=== PATIENT | female | born 1950 | race Hispanic/Latino ===

== ENCOUNTER → 2018-12-31 | Outpatient (CLI) | payer OTHER | LOC: US 10:02 | PROVIDERS: ATTEND Surgery | DX: R92.8 Other abnormal and inconclusive findings on diagnostic imaging of breast (principal) ==

== ENCOUNTER → 2019-01-16 | Outpatient (CLI) | payer OTHER ==
--- NOTE | 2019-01-17 08:24 | Diagnostic Imaging Report ---
#[id number] - MGDXRT #UNILATERAL RIGHT DIGITAL DIAGNOSTIC MAMMOGRAM WITH SPOT COMPRESSION: 01/16/2019 Comparison is made to exams dated: 06/17/2018 mammogram, 06/17/2018 ultrasound and 06/04/2018 mammogram - [facility]. Current study contains 3 films. There are scattered fibroglandular elements in the right breast. Benign appearing calcifications are noted in the right breast. Medial skin lesion has been resected. No significant masses, calcifications, or other findings are seen in the breast. IMPRESSION: BENIGN See the report for ultrasound performed the same day for additional details. There is no mammographic evidence of malignancy. A 1 year screening mammogram is recommended. The patient will be notified by letter of the results. BRUNILDA HEREDIA M.D. ct/:01/16/2019 10:25:25 Medical Records Supervisor: Gretel RONDON)(Noel), [facility] letter sent: Normal Exam Mammogram BI-RADS: 2 Benign
--- NOTE | 2019-01-17 08:24 | Diagnostic Imaging Report ---
#[id number] - USBRELIMRT ULTRASOUND OF THE RIGHT BREAST : 01/16/2019 Comparison is made to exams dated: 01/16/2019 mammogram - [facility], 06/17/2018 mammogram and 06/17/2018 ultrasound - [facility]. Real-time ultrasound was performed on the right breast. There are no solid or cystic masses identified. IMPRESSION: BENIGN There is no sonographic evidence of malignancy. A 1 year screening mammogram is recommended. BRUNILDA HEREDIA M.D. ct/penrad:01/16/2019 10:26:23 Client Technical Support Associate: LACY CAMARA RDKY, [facility] letter sent: Normal Exam Ultrasound BI-RADS: 2 Benign
== END ==
LOC: MAMMO 08:36
PROVIDERS: ATTEND Surgery
DX: R92.8 Other abnormal and inconclusive findings on diagnostic imaging of breast (principal)

== ENCOUNTER 2019-04-01 03:46 | Emergency (ER) | payer MEDICARE, OTHER ==
[~2019-04-01] VITALS: Ht 160 cm; Wt 81.6 kg
--- OUTSIDE RECORDS SUMMARY | 2019-04-01 03:48 | XMS REPORT ---
Author Author [facility] Address Unknown Phone Unavailable Care Team Providers Care Compliance Analyst Name Role Phone Dustin CORDOVA Unavailable Unavailable Problems This patient has no known problems. Allergies, Adverse Reactions, Alerts This patient has no known allergies or adverse reactions. Medications This patient has no known medications. Encounters Start Date/Time End Date/Time Encounter Type Admission Type Attending Clinicians Care Facility Care Department Encounter ID 2018-10-03 13:49:26 Outpatient [facility] [id number] 2018-06-17 07:41:00 2018-06-17 07:41:00 Outpatient [facility] MED [id number] 2018-06-04 14:28:00 2018-06-04 14:28:00 Outpatient [facility] MED [id number] Results Test Description Test Time Test Comments Text Results Atomic Results Result Comments US BREAST LIMITED RIGHT 2019-01-16 10:09:00 [place] [id number] Patient Name: LETY CORNELIUS MR #: [id number] : 1950 Age/Sex: 68/F Req #: [id number] Adm Physician: Ordered by: HARVEY CORDOVA MD Report #: [id number] Location: MAMMO Room/Bed: Procedure: [id number] US/US BREAST LIMITED RIGHT Exam Date: Exam Time: REPORT STATUS: Signed #[id number] - USBRELIMRT ULTRASOUND OF THE RIGHT [address] : 01/16/2019 Comparison is made to exams dated: 01/16/2019 mammogram - [facility], 06/17/2018 mammogram and 06/17/2018 ultrasound - [facility]. Real-time ultrasound was performed on the right breast. There are no solid or cystic masses identified. IMPRESSION: BENIGN There is no sonographic evidence of malignancy. A 1 year screening mammogram is recommended. BRUNILDA HEREDIA M.D. ct/wilma:01/16/2019 10:26:23 Media Consultant Outside Sales: LACY CAMARA [facility], [facility] letter sent: Normal Exam Ultrasound BI-RADS: 2 Benign Dictated By: BRUNILDA HEREDIA MD 1026 Transcribed By: WILMA on 01/16/19 1026 COPY TO: HARVEY CORDOVA MD MAMMOGRAPHY DIGITAL DX UNI RT 2019-01-16 10:02:00 [place] [id number] Patient Name: LETY CORNELIUS MR #: [id number] : 1950 Age/Sex: 68/F Req #: [id number] [facility] Physician: Ordered by: HARVEY CORDOVA MD Report #: [id number] Location: MAMMO Room/Bed: Procedure: [id number] MG/MAMMOGRAPHY DIGITAL DX UNI RT Exam Date: 01/16/19 Exam Time: 915 REPORT STATUS: Signed #[id number] - MGDXRT #UNILATERAL RIGHT DIGITAL DIAGNOSTIC MAMMOGRAM WITH SPOT COMPRESSION: 01/16/2019 Comparison is made to exams dated: 06/17/2018 mammogram, 06/17/2018 ultrasound and 06/04/2018 mammogram - [facility]. Current study contains 3 films. There are scattered fibroglandular elements in the right breast. Benign appearing calcifications are noted in the right breast. Medial skin lesion has been resected. No si gnificant masses, calcifications, or other findings are seen in the breast. IMPRESSION: BENIGN See the report for ultrasound performed the same day for additional details. There is no mammographic evidence of malignancy. A 1 year screening mammogram is recommended. The patient will be notified by letter of the results. BRUNILDA HEREDIA M.D. ct/:01/16/2019 10:25:25 Media Consultant Outside Sales: Gretel GARCIA(Umesh)(Noel), [facility] letter sent: Normal Exam Mammogram BI-RADS: 2 Benign Dictated By: BRUNILDA HEREDIA MD 1025 Transcribed By: WILMA on 01/16/19 1025 COPY TO: HARVEY CORDOVA MD
[2019-04-01] MEDS ORDERED: TRAMADOL HCL 50 MG TAB PO ONE (04:00)
[2019-04-01] MEDS ORDERED: DIAZEPAM 5 MG TAB PO PRN (04:00)
--- NOTE | 2019-04-01 04:40 | Diagnostic Imaging Report ---
EXAMINATION: Head and cervical spine CT without contrast. HISTORY: Right-sided head and neck pain for last 2 days COMPARISON: None. TECHNIQUE: Multidetector axial images were obtained without contrast from the foramen magnum to the vertex and through the cervical spine. The images were reconstructed using brain and bone algorithms. Thin section brain images were reformatted into coronal and sagittal planes. Dose modulation, iterative reconstruction, and/or weight based adjustment of the mA/kV was utilized to reduce the radiation dose to as low as reasonably achievable. HEAD CT FINDINGS: Skull/scalp: No lytic or blastic lesions. No fractures. Parenchyma: Normal. No mass, hemorrhage or CT evidence of acute vascular insult. Brain volume: Normal for age. Ventricles: No hydrocephalus or displacement. Arteries: No density suggestive of thrombus. Dural sinuses: No abnormal density. Extra-axial spaces: No abnormal density. Foramen magnum: No mass, Chiari malformation, or basilar invagination. Sella: No obvious mass. Paranasal/mastoid sinuses: Imaged portions unremarkable. CERVICAL SPINE CT FINDINGS: Alignment:Normal alignment and lordosis. Soft tissues: Normal. Vertebrae: Normal height and density. No acute fracture, infection or neoplasm. Degenerative changes: C1-C2: Normal C2-C3: Normal C3-C4: Mild symmetric disc bulge and facet arthrosis. No significant stenosis. C4-C5: Asymmetric left disc osteophyte complex formation, bilateral uncovertebral arthrosis. Mild left foraminal stenoses. C5-C6: Disc osteophyte complex formation, bilateral uncovertebral and facet arthrosis. Mild bilateral foraminal stenoses. C6-C7: Disc osteophyte complex formation asymmetric to the left, uncovertebral and facet arthrosis. Mild right and moderate left foraminal stenosis. C7-T1: Normal IMPRESSION: Head CT: No intracranial abnormalities. Cervical spine CT: 1. 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 2. Mild degenerative foraminal stenoses on the left at C4-C5, bilaterally at C5-6 and on the right at C6-7. Signed by: Dr. Elaina Osuna M.D. on 04/01/2019 4:38 AM
== END 2019-04-01 05:03 | disposition home or self-care (01) ==
LOC: ER 03:46
DX: S16.1XXA Strain of muscle, fascia and tendon at neck level, initial encounter (principal); R51 Headache; E11.9 Type 2 diabetes mellitus without complications; E78.5 Hyperlipidemia, unspecified; E03.9 Hypothyroidism, unspecified; K21.9 Gastro-esophageal reflux disease without esophagitis
CPT/HCPCS: 70450; 72125; 99283